=== PATIENT | male | born 1995 | race Caucasian/White ===

== ENCOUNTER 2021-01-20 18:12 | Emergency (ER) | payer OTHER ==
[2021-01-20] MEDS ORDERED: SODIUM CHLORIDE 0.9% 1,000 ML IV STA (18:29)
[2021-01-20 18:42] LABS: BASOPHILS % (AUTO) 0.3 %; EOSINOPHILS % (AUTO) 11.2 %; HCT - HEMATOCRIT 36.3 % (42.0-52.0); HGB - HEMOGLOBIN 12.1 g/dL (14.0-18.0); LYMPHOCYTES % (AUTO) 21.6 %; MEAN CORPUSCULAR HEMOGLOBIN 30.9 pg (27.0-31.0); MEAN CORPUSCULAR HGB CONC 33.3 g/dL (32.0-36.0); MEAN CORPUSCULAR VOLUME 92.6 fL (80.0-94.0); MEAN PLATELET VOLUME 9.9 fL (7.4-11.4); MONOCYTES % (AUTO) 9.4 %; NEUTROPHILS % (AUTO) 56.5 %; PLT - PLATELET COUNT 242 10^3/uL (130-450); RED BLOOD COUNT 3.92 10^6/uL (4.70-6.10); RED CELL DISTRIBUTION WIDTH 13.4 % (12.0-15.0); WHITE BLOOD COUNT 9.9 x10^3/uL (4.8-10.8)
[2021-01-20 18:44] LABS: ABNORMAL LYMPHS % (MANUAL) 0 %
[2021-01-20] MEDS ORDERED: IOPAMIDOL-300 100 ML VIAL ONE (18:44)
[2021-01-20 18:54] LABS: ALBUMIN 3.9 g/dL (3.2-5.5); ALBUMIN/GLOBULIN RATIO 1.1 (1.0-2.2); BILIRUBIN,TOTAL 0.5 mg/dL (0.2-1.0); CALCIUM 9.1 mg/dL (8.5-10.3); POTASSIUM 3.6 mmol/L (3.5-5.0); TOTAL PROTEIN 7.5 g/dL (6.7-8.2)
[2021-01-20 19:14] LABS: BAND NEUTROPHILS % (MANUAL) 11 %; BASOPHILS # (MANUAL) 0.1 10^3/uL (0-0.1); BASOPHILS % (MANUAL) 1 %; EOSINOPHILS # (MANUAL) 1.2 10^3/uL (0-0.7); LYMPHOCYTES # (MANUAL) 2.8 10^3/uL (1.5-3.5); LYMPHOCYTES % (MANUAL) 17 %; MONOCYTES # (MANUAL) 0.7 10^3/uL (0.0-1.0); NEUTROPHILS # (MANUAL) 5.1 10^3/uL (1.5-6.6); REACTIVE LYMPHS % (MANUAL) 11 %
[2021-01-20 19:15] LABS: PLATELET ESTIMATE, MANUAL NORMAL (130-450,000) (NORMAL); PLATELET MORPHOLOGY NORMAL APPEARANCE (NORMAL); RBC MORPHOLOGY (MULTIPLE) 1+ POLYCHROMASIA (NORMAL)
[2021-01-20 19:16] LABS: DIFFERENTIAL COMMENT MANUAL DIFFERENTIAL; WBC MORPHOLOGY (MULTIPLE) 1+ TOXIC GRANULATION (NORMAL)
[2021-01-20] MEDS ORDERED: IOPAMIDOL-300 100 ML VIAL IVP ONE (19:20)
--- NOTE | 2021-01-20 19:28 | CT Report ---
PROCEDURE: Abdomen/Pelvis W INDICATIONS: LLQ Abdominal pain, diverticulitis suspected CONTRAST: IV CONTRAST: Isovue 300 ml: 100 PO CONTRAST: *NO PO CONTRAST TECHNIQUE: After the administration of intravenous contrast, 5 mm thick sections acquired from the diaphragms to the symphysis. 5 mm thick coronal and sagittal reformats were acquired. For radiation dose reducti on, the following was used: automated exposure control, adjustment of mA and/or kV according to scott ent size. COMPARISON: None. FINDINGS: Image quality: Excellent. ABDOMEN: Lung bases: Lung bases are clear. Heart size is normal. Solid organs: Liver and spleen are normal in size and enhancement. Gallbladder is normal. Biliary system is non dilated. Pancreas enhances normally. No adrenal nodules. Kidneys demonstrate normal size and enhancement, without hydronephrosis. Peritoneum and bowel: There is a fairly diffuse colonic wall thickening with some mucosal edema and a djacent hazy fat stranding. There is only minimal diverticulosis with no findings of diverticulitis. No findings of bowel obstruction. Nodes and vessels: No retroperitoneal or mesenteric adenopathy by size criteria. Aorta and inferior vena cava are normal in size. Miscellaneous: No ventral hernias. PELVIS: Genitourinary: Bladder wall thickness is normal. Miscellaneous: No inguinal hernias or adenopathy. Bones: No suspicious bony lesions. No vertebral body compression fractures. IMPRESSION: Fairly diffuse colonic wall thickening, appearance consistent with inflammatory bowel di sease such as ulcerative colitis or less likely Crohn disease. Infectious or ischemic colitis cannot be strictly excluded on the basis of imaging appearance but are consider less likely. Referral to [facility] troenterology recommended. Reviewed by: Srikanth Chamberlain MD on 01/20/2021 7:27 PM PDT Approved by: Srikanth Chamberlain MD on 01/20/2021 7:27 PM PDT Station ID: [id number]
--- NOTE | 2021-01-20 20:11 | ED Physician Documentation ---
History of Present Illness - Stated complaint Stated Complaint: BLOOD IN STOOL - Chief complaint Chief Complaint: Abd Pain - History obtained from History obtained from: Patient - History of Present Illness Timing: How many weeks ago (4) Pain level max: 4 Pain level now: 3 - Additonal information Additional information: 25-year-old male presents to the emergency department with LLQ abdominal pain. ongoing for several weeks. complains of brbpr. awaiting GI referral from PCP father has crohns disease no history of same in patient no history of inflammatory bowel disease in patient. Patient states he has had bleeding with every bowel movement for about the past 4 weeks. [place] mildly lightheaded today. Came in for evaluation. Review of Systems Ten Systems: 10 systems reviewed and negative Constitutional: denies: Fever, Chills Cardiac: denies: Chest pain / pressure, Palpitations Respiratory: denies: Cough GI: denies: Vomiting Skin: denies: Rash Musculoskeletal: denies: Neck pain, Back pain Neurologic: denies: Headache PD PAST MEDICAL HISTORY - Past Medical History Past Medical History: No - Past Surgical History Past Surgical History: No - Present Medications Home Medications: Ambulatory Orders Medication Instructions Recorded Confirmed No Known Home Medications 01/20/21 01/20/21 - Allergies Allergies/Adverse Reactions: Allergies Allergy/AdvReac Type Severity Reaction Status Date / Time No Known Drug Allergies Allergy Verified 01/20/21 18:18 - Living Situation Living Situation: reports: With family Living Arrangement: reports: At home - Social History Does the pt smoke?: No Smoking Status: Never smoker Does the pt drink ETOH?: No Does the pt have substance abuse?: No - Immunizations Immunizations are current?: No - POLST Patient has POLST: No PD ED PE NORMAL - Vitals Vital signs reviewed: Yes - General General: Alert and oriented X 3, No acute distress - HEENT HEENT: PERRL, Moist mucous membranes - Neck Neck: Supple, no meningeal sign - Cardiac Cardiac: RRR - Respiratory Respiratory: No respiratory distress, Clear bilaterally - Abdomen Abdomen: Soft, Non tender, Non distended - Rectal Rectal: Pt declined - Derm Derm: Warm and dry - Neuro Neuro: Alert and oriented X 3 - Psych Psych: Normal mood, Normal affect Results - Vitals Vitals: Vital Signs - 24 hr 01/20/21 01/20/21 01/20/21 18:18 18:23 20:23 Temperature 36.9 C 36.9 C Heart Rate 93 90 86 Respiratory 18 18 18 Rate Blood Pressure 125/81 H 125/81 H 109/69 O2 Saturation 100 100 97 Oxygen O2 Source Room air - Labs Labs: Laboratory Tests 01/20/21 01/20/21 18:38 18:38 WBC 9.9 RBC 3.92 L Hgb 12.1 L Hct 36.3 L MCV 92.6 MCH 30.9 MCHC 33.3 RDW 13.4 Plt Count 242 MPV 9.9 Neut # (Auto) Not Reportable Lymph # (Auto) Not Reportable [place] # (Auto) Not Reportable Eos # (Auto) Not Reportable Baso # (Auto) Not Reportable Absolute Nucleated RBC Not Reportable Total Counted 100 Band Neuts % (Manual) 11 H Reactive Lymphs % (Man) 11 Abnorm Lymph % (Manual) 0 Nucleated RBC % Not Reportable Neutrophils # (Manual) 5.1 Lymphocytes # (Manual) 2.8 Monocytes # (Manual) 0.7 Eosinophils # (Manual) 1.2 H Basophils # (Manual) 0.1 Differential Comment MANUAL DIFFERENTIAL WBC Morphology 1+ TOXIC GRANULATION Platelet Estimate NORMAL (130-450,000) Platelet Morphology NORMAL APPEARANCE RBC Morph Micro Appear 1+ POLYCHROMASIA Sodium 134 L Potassium 3.6 Chloride 98 L Carbon Dioxide 29 Anion Gap 7.0 BUN 13 Creatinine 1.0 Estimated GFR (MDRD) 90 Glucose 109 H Calcium 9.1 Total Bilirubin 0.5 AST 11 ALT 11 Alkaline Phosphatase 45 Total Protein 7.5 Albumin 3.9 Globulin 3.6 Albumin/Globulin Ratio 1.1 Lipase 24 - Rads (name of study) CT abdomen and pelvis Radiology: Final report received, EMP read contemporaneously, See rad report PD MEDICAL DECISION MAKING - ED course Complexity details: reviewed results, re-evaluated patient, considered differential, d/w patient ED course: 25-year-old male with likely ulcerative colitis. We discussed starting medication today, the patient does not want to start medication at this time. He will follow up with his doctor for further care. Recommend that he discuss starting medication with his doctor if he is going to have a prolonged referral to GI. Patient counseled regarding signs and symptoms for which I believe and urgent re-evaluation would be necessary. Patient with good understanding of and agreement to plan and is comfortable going home at this time This document was made in part using voice recognition software. While efforts are made to proofread this document, sound alike and grammatical errors may occur. Fairly diffuse colonic wall thickening, appearance consistent with inflammatory bowel disease such as ulcerative colitis or less likely Crohn's disease. Infectious or ischemic colitis cannot be strictly excluded on the basis of imaging appearance. Considered less likely. Referral to GI recommended. Departure - Departure Disposition: 01 Home, Self Care Clinical Impression: Ulcerative colitis Qualifiers: Ulcerative colitis location: other ulcerative colitis Digestive disease complication type: with rectal bleeding Qualified Code(s): K51.811 - Other ulcerative colitis with rectal bleeding Condition: Good Instructions: ED Colitis Ulcerative Follow-Up: your,doctor in 1 week [Other] Comments: Your CT scan appears consistent with ulcerative colitis. Follow-up closely with your doctor for referral to GI. Sometimes GI does not want you started on medications before seeing them. If however your GI appointment will be delayed by several weeks to months, would recommend starting you on a short course of steroids followed by a maintenance medication such as sulfasalazine. You can discuss this with your doctor as to which medication they would like to start you on. Return if you worsen. ABDOMEN: Lung bases: Lung bases are clear. Heart size is normal. Solid organs: Liver and spleen are normal in size and enhancement. Gallbladder is normal. Biliary system is non dilated. Pancreas enhances normally. No adrenal nodules.Kidneys demonstrate normal size and enhancement, without hydronephrosis. Peritoneum and bowel: There is a fairly diffuse colonic wall thickening with some mucosal edema and adjacent hazy fat stranding. There is only minimal diverticulosis with no findings of diverticulitis. No findings of bowel obstruct ion. Nodes and vessels: No retroperitoneal or mesenteric adenopathy by size criteria. Aorta and inferior vena cava are normal in size. Miscellaneous: No ventral hernias. PELVIS: Genitourinary: Bladder wall thickness is normal. Miscellaneous: No inguinal hernias or adenopathy. Bones: No suspicious bony lesions. No vertebral body compression fractures. IMPRESSION: Fairly diffuse colonic wall thickening, appearance consistent with inflammatory bowel disease such as ulcerative colitis or less likely Crohn disease. Infectious or ischemic colitis cannot be strictly excluded on the basis of imaging appearance but are consider less likely. Referral to gastroenterology recommended. Discharge Date/Time: 01/20/21 20:27
[2021-01-20 20:26] VITALS: BP 109/69
== END 2021-01-20 20:27 | disposition home or self-care (01) ==
LOC: ED 18:12
DX: K51.811 Other ulcerative colitis with rectal bleeding (principal); Z83.79 Family history of other diseases of the digestive system
CPT/HCPCS: 36415; 74177; 80053; 83690; 85025; 96360; 99284; Q9967

== ENCOUNTER 2021-09-25 14:55 | Outpatient (CLI) | payer OTHER | END 2021-09-25 14:56 | disposition critical access hospital (66) | LOC: EMS 14:55 | DX: R10.10 Upper abdominal pain, unspecified (principal); R42 Dizziness and giddiness; R00.0 Tachycardia, unspecified | CPT/HCPCS: A0425; A0427 ==